=== PATIENT | female | born 1970 | race Caucasian/White ===

== ENCOUNTER 2020-02-28 10:08 | Emergency (ER) | payer OTHER, SELFPAY ==
[2020-02-28 10:25] VITALS: BP 123/86; PULSE 98; RESP 16; TEMP 36.9; O2SAT 99
--- NOTE | 2020-02-28 10:29 | ED.URI ---
HPI - URI/Sore Throat General Chief Complaint: Upper Respiratory Infection Stated Complaint: sinus infection Time Seen by Provider: 02/28/20 10:29 Source: patient and RN notes reviewed History of Present Illness HPI Narrative: Patient is a 50-year-old female who presents the urgent care with complaints of sinus congestion and pressure. Patient states it started approximately 3 or 4 days ago and she has not yet taken anything [id number] for her symptoms. Patient denies of any fever, nausea, vomiting. Denies of any known exposure to Covid. Denies of any shortness of breath. No other acute complaints. No acute distress noted. Patient aware of the plan of care. Some parts of this dictation were generated by voice recognition software and may contain typographical and/or grammatical inaccuracies. Related Data Home Medications Medication Instructions Recorded Confirmed clonidine HCl 0.1 mg PO DAILY 02/28/20 02/28/20 hydrochlorothiazide 12.5 mg PO DAILY 02/28/20 02/28/20 lamotrigine 150 mg PO DAILY 02/28/20 02/28/20 losartan 50 mg PO DAILY 02/28/20 02/28/20 lovastatin 40 mg PO DAILY 02/28/20 02/28/20 metformin 500 mg PO DIRECTED 02/28/20 02/28/20 oxybutynin chloride 5 mg PO DAILY 02/28/20 02/28/20 risperidone 2 mg PO DAILY 02/28/20 02/28/20 trazodone 02/28/20 Allergies Allergy/AdvReac Type Severity Reaction Status Date / Time morphine Allergy Hives Verified 02/28/20 10:35 Review of Systems Review of Systems: Narrative: CONSTITUTIONAL: Denies fever, chills, or sweats. EYES: Denies visual changes, redness, or discharge. ENT: Reports of sinus pressure and congestion CARDIOVASCULAR: Denies chest pain, palpitations, or edema. RESPIRATORY: Denies cough or dyspnea. GASTROINTESTINAL: Denies abdominal pain, nausea, vomiting, or diarrhea. GENITOURINARY: Denies dysuria or hematuria. SKIN: Denies rash or itching. MUSCULOSKELETAL: Denies back pain, joint pain, or myalgia. NEUROLOGIC: Denies headache, numbness, or weakness. All other systems reviewed are negative, except as documented in HPI. PMFSH Comments At the time of my signature, I reviewed and agree with the nursing past medical, surgical, social, and family history. There is no relevant family history pertinent to the patient complaint. Exam Narrative: Exam Narrative: GENERAL: This is a well-nourished, well-developed patient, in no apparent distress. HEAD: normocephalic, atraumatic. Moderate frontal sinus tenderness EYES: PERRL. Sclera clear/white. Vision is grossly intact. EARS: External ears normal, auditory canals clear and without drainage, mild fluid noted behind bilateral TMs without otitis, TMs normal without perforation. Hearing grossly intact. NOSE: External nose normal with no obvious nasal discharge, nares without redness, no rhinorrhea. THROAT: Mucous membranes moist, posterior pharynx clear. Mild postnasal drainage NECK: Neck supple CARDIOVASCULAR: Regular rate and rhythm without murmurs, gallops, or rubs. RESPIRATORY: Clear to auscultation. Breath sounds equal bilaterally. No wheezes, rales, or rhonchi. SKIN: warm, intact with no suspicious lesions or rash, good texture and turgor. NEURO: awake, alert, and oriented to person, place and time. There were no obvious focal neurologic abnormalities. EXTREMITIES: No clubbing, cyanosis, or edema. Course Vital Signs Vital signs: Vital Signs Temperature 98.5 F 02/28/20 10:25 Pulse Rate 98 02/28/20 10:25 Respiratory Rate 16 02/28/20 10:25 Blood Pressure 123/86 02/28/20 10:25 Pulse Oximetry 99 02/28/20 10:25 Temperature 98.5 F 02/28/20 10:25 Pulse Rate 98 02/28/20 10:25 Respiratory Rate 16 02/28/20 10:25 Blood Pressure 123/86 02/28/20 10:25 Pulse Oximetry 99 02/28/20 10:25 Reviewed MDM - URI/Sore Throat MDM Narrative Medical decision making narrative: Advised the patient to complete steroid regimen as prescribed. Use Flonase nasal spray as directed. Use an over-t
[2020-02-28 10:37] VITALS: BP 123/86; PULSE 98; RESP 16; TEMP 36.9; O2SAT 99
== END 2020-02-28 10:39 | disposition home or self-care (01) ==
PROVIDERS: Emergency Provider Nurse Practitioner Family; PCP Internal Medicine
DX: J32.9 Chronic sinusitis, unspecified (principal); E11.9 Type 2 diabetes mellitus without complications; F31.9 Bipolar disorder, unspecified
CPT/HCPCS: 99213; G0463

== ENCOUNTER 2020-08-18 08:35 | Emergency (ER) | payer OTHER, SELFPAY ==
[2020-08-18 08:43] VITALS: BP 137/81; PULSE 96; RESP 16; TEMP 36.5; O2SAT 100
--- NOTE | 2020-08-18 08:59 | ED.GENADULT ---
HPI - General Adult General Chief complaint: Skin/Abscess/Foreign Body Stated complaint: Rash all over Body/Pain in right hip Time Seen by Provider: 08/18/20 09:00 Source: patient and RN notes reviewed Mode of arrival: ambulatory Limitations: no limitations History of Present Illness HPI narrative: 50-year-old female presents with complaints of generalized red, raised, itching, burning, rash for the past 3 days. ?Idalia reports doing yard work on Tuesday08/15/2020 and noticed a rash 2 days later. ?Cortisone-10 without relief. Denies new detergent, personal hygiene products, or laundry detergent. ?No new foods or medications. ?No swelling, bleeding, or drainage. ?Denies fever or chills, headaches, weakness, fatigue, myalgia, facial swelling, or tongue swelling. Tolerating po intake well. Denies chest pain or dyspnea. Remains active. The patient reports she has not been diagnosed with COVID-19. The patient reports she received 2 [employer] COVID-19 vaccines. The patient reports she is not waiting for the results of a COVID-19 lab test. The patient reports she does not have a new or worsening cough or shortness of breath. Denies chest pain. The patient reports she does not have any rhinorrhea, congestion, sore throat, loss of taste or smell, nausea, vomiting, abdominal pain, and diarrhea. Denies recent traveling. ?Denies concerns for COVID-19 or exposures. ?At this time, the patient is not suspected of having COVID-19. Complaints of right hip pain for the past 4 days. Idalia complains of chronic hip, flared up with increasing pain over the past 24 hours. Tylenol, last taken on 08/17/2020 @ 17:00 approximately and heating pad without relief. Denies radiation of pain. ?No numbness or tingling or bleeding. No swelling. ?No loss of mobility. Exacerbating factor consists of weight. ?Relieving factors Some parts of this dictation were generated by voice recognition software and may contain typographical and/or grammatical inaccuracies. Related Data Home Medications Medication Instructions Recorded Confirmed clonidine HCl 0.1 mg PO DAILY 02/28/20 08/18/20 hydrochlorothiazide 12.5 mg PO DAILY 02/28/20 08/18/20 lamotrigine 150 mg PO DAILY 02/28/20 08/18/20 losartan 50 mg PO DAILY 02/28/20 08/18/20 metformin 500 mg PO DIRECTED 02/28/20 08/18/20 oxybutynin chloride 5 mg PO DAILY 02/28/20 08/18/20 risperidone 2 mg PO DAILY 02/28/20 08/18/20 atorvastatin 20 mg PO DAILY 08/18/20 08/18/20 Allergies Allergy/AdvReac Type Severity Reaction Status Date / Time morphine Allergy Hives Verified 08/18/20 08:52 Review of Systems Review of Systems: Narrative: CONSTITUTIONAL: Denies fever, chills, sweats. EYES: Denies visual changes, redness, discharge. ENT: Denies rhinorrhea, congestion, sore throat, otalgia. CARDIOVASCULAR: Denies chest pain, palpitations, edema. RESPIRATORY: Denies dyspnea, wheezing, cough. GASTROINTESTINAL: Denies abdominal pain, nausea, vomiting, diarrhea. SKIN: Complains of generalized red, burning, and itching rash. Denies drainage. MUSCULOSKELETAL: Denies acute back pain, or myalgia. Complains of RT hip pain. NEUROLOGIC: Denies numbness or focal weakness. PSYCHIATRIC: Denies anxiety or depression. All other systems reviewed are negative, except as documented in HPI. [facility] Past Medical History Medical History Bipolar disorder delivery delivered Diabetes Hypercholesteremia Hypertension Overactive bladder Smoker Surgical History Surgical History (Updated 08/18/20 @ 09:13 by NAI Hughes) H/O section X1 History of hysterectomy History of tonsillectomy Family History Family History (Updated 08/18/20 @ 09:13 by NAI Hughes) Father Diabetes mellitus Hypertension Hypercholesteremia Mother Diabetes mellitus Hypercholesteremia Hypertension Social History Social History (Updated 08/18/20 @ 09:15 by NAI Hughes) Smoking packs per d
[2020-08-18] MEDS: methylPREDNISolone SOD SUCC 125 MG VIAL IM (09:16)
[2020-08-18] MEDS: KETOROLAC (*BKC) 60 MG/2 ML VIAL IM (09:17)
== END 2020-08-18 09:37 | disposition home or self-care (01) ==
PROVIDERS: Emergency Provider Nurse Practitioner Family; PCP Internal Medicine
DX: L23.7 Allergic contact dermatitis due to plants, except food (principal); M25.551 Pain in right hip; F17.210 Nicotine dependence, cigarettes, uncomplicated; E11.9 Type 2 diabetes mellitus without complications; E78.00 Pure hypercholesterolemia, unspecified; I10 Essential (primary) hypertension; F31.9 Bipolar disorder, unspecified
CPT/HCPCS: 96372; 99214; G0463; J1885; J2930